=== PATIENT | female | born 1950 | race African-American/Black ===

== ENCOUNTER 2021-06-18 08:15 | Emergency (ER) | payer OTHER ==
[~2021-06-18] VITALS: Ht 170.2 cm; Wt 71.7 kg
[2021-06-18] MEDS ORDERED: METFORMIN HCL500 M1 PO (08:19)
[2021-06-18 08:20] VITALS: BP 144/69
[2021-06-18] MEDS ORDERED: CHLORTHALIDONE25 MG PO (08:20)
[2021-06-18] MEDS ORDERED: METFORMIN HCL1000 MG PO (08:20)
[2021-06-18] MEDS ORDERED: AMLODIPINE BESY10 MG PO (08:20)
[2021-06-18] MEDS ORDERED: SINGULAIR 10 MG10 M1 PO (08:20)
[2021-06-18] MEDS ORDERED: LIPITOR 40 MG T40 M1 PO (08:20)
[2021-06-18] MEDS ORDERED: SULFACETAMIDE 115 M1 OPHTHALMIC (09:22)
== END 2021-06-18 10:06 | disposition home or self-care (01) ==
LOC: ER 08:15
DX: S05.02XA Injury of conjunctiva and corneal abrasion without foreign body, left eye, initial encounter (principal); I10 Essential (primary) hypertension; E11.9 Type 2 diabetes mellitus without complications; Z88.8 Allergy status to other drugs, medicaments and biological substances; Z79.899 Other long term (current) drug therapy; X58.XXXA Exposure to other specified factors, initial encounter; Y93.89 Activity, other specified; Y92.89 Other specified places as the place of occurrence of the external cause; Y99.9 Unspecified external cause status